=== PATIENT | male | born 1970 | race Caucasian/White ===

== ENCOUNTER 2016-07-05 10:45 | Day surgery (SDC) | payer OTHER ==
[~2016-07-05] VITALS: Ht 177.8 cm; Wt 102.1 kg
[~2016-07-05 10:45] MED LIST: ALKA SELTZER P PO; CYANOCOBALAM1000 MCG PO; Colace PO; Flagyl PO; Levaquin PO; MULTIPLE VITAM1 EACH PO; NO HOME MEDS; Percocet 5/325,Endoc PO; VITAMIN B-1100 MG PO; VITAMIN D-32000 UNI2 PO; VITAMIN D31000 UNIT PO
[2016-07-05 11:31] VITALS: BP 142/90
[2016-07-05] MEDS ORDERED: PERCOCET 10/1 TABLET PO (15:56)
[2016-07-05] MEDS ORDERED: COLACE100 MG PO (15:56)
[2016-07-05 17:28] VITALS: BP 146/82
[2016-07-05 18:05] VITALS: BP 168/81
== END 2016-07-05 18:12 | disposition home or self-care (01) ==
LOC: SDC 10:45
PROC: 0FT44ZZ Resection of Gallbladder, Percutaneous Endoscopic Approach (ICD-10-PCS; principal; 2016-07-05)
DX: K80.10 Calculus of gallbladder with chronic cholecystitis without obstruction (principal); E78.1 Pure hyperglyceridemia; G47.33 Obstructive sleep apnea (adult) (pediatric); E11.9 Type 2 diabetes mellitus without complications; E55.9 Vitamin D deficiency, unspecified; Z83.49 Family history of other endocrine, nutritional and metabolic diseases; Z82.49 Family history of ischemic heart disease and other diseases of the circulatory system; Z81.1 Family history of alcohol abuse and dependence; Z80.7 Family history of other malignant neoplasms of lymphoid, hematopoietic and related tissues; Z88.2 Allergy status to sulfonamides
CPT/HCPCS: 88304; J0330; J1100; J2710; J2765; J3010